=== PATIENT | male | born 1960 | race Caucasian/White ===

== ENCOUNTER 2020-08-05 00:14 | Emergency (ER) | payer BC ==
--- OUTSIDE RECORDS SUMMARY | 2020-08-05 00:22 | XMS ---
:1960 Author Organization [facility] Care Team Providers Name Role Phone Jean Pierre Thacker Unavailable Unavailable Farzad Benitez MD Unavailable Unavailable Reyna Ortega Unavailable Unavailable Narda Unavailable Unavailable Nasir, Mack Unavailable Unavailable Yamini Sharp Unavailable Unavailable Pete, Jose Unavailable Unavailable Nils Unavailable Unavailable Re-disclosure Warning The records that you are about to access may contain information from federally- assisted alcohol or drug abuse programs. If such information is present, then the following federally mandated warning applies: This information has been disclosed to you from records protected by federal confidentiality rules (42 CFR part 2). The federal rules prohibit you from making any further disclosure of this information unless further disclosure is expressly permitted by the written consent of the person to whom it pertains or as otherwise permitted by 42 CFR part 2. A general authorization for the release of medical or other information is NOT sufficient for this purpose. The Federal rules restrict any use of the information to criminally investigate or prosecute any alcohol or drug abuse patient.The records that you are about to access may contain highly sensitive health information, the redisclosure of which is protected by Article 27-F of the [facility] Public Health law. If you continue you may haveaccess to information: Regarding HIV / AIDS; Provided by facilities licensed or operated by the [facility] Office of Mental Health; or Provided by the [facility] Office for People With Developmental Disabilities. If such information is present, then the following [facility] mandated warning applies: This information has been disclosed to you from confidential records which are protected by state law. State law prohibits you from making any further disclosure of this information without the specific written consent of the person to whom it pertains, or as otherwise permitted by law. Any unauthorized further disclosure in violation of state law may result in a fine or retirement sentence or both. A general authorization for the release of medical or other information is NOT sufficient authorization for further disclosure. Advance Directives Directive Description Environmental Auditor Vaccine Customer Representative Status Observation Data S ource(s) Description Advance No [facility] Advance No [facility] Allergies and Adverse Reactions Type Description Substance Reaction Status Data Source(s ) 3 NO KNOWN ALLERGIES Clindamycin 150 MG NEXTGEN Oral Tablet ([facility] [Clintabs] Medical [facility] Medical [facility]) Drug allergy No Known Allergies No Known Allergies [facility] Encounters Encounter Providers Location Date Indications Data Source(s ) Outpatient Attender: Alvin 07/18/2020 NEXTGEN Lial 03:42:00 PM ([facility] ED Medical [facility] Medical [facility]) Outpatient Attender: David 07/06/2020 NEXTGEN Pete 06:39:00 AM ([facility] EDT Medical [facility] Medical [facility]) Outpatient Attender: Ken 07/03/2020 NEXTGEN Nasir 08:46:00 AM ([facility] Medical [facility] Medical [facility]) Outpatient Attender: David 06/29/2020 NEXTGEN Pete 09:11:00 AM ([facility] EDT Medical [facility] Medical [facility]) Outpatient Attender: Ken 06/27/2020 NEXTGEN NasirReferrlu 11:15:00 AM (Carem ount : Ken Best [facility] Medical [facility] Medical [facility]) Outpatient Attender: David 06/27/2020 NEXTGEN Pete 06:51:00 AM ([facility] ED Medical [facility] Medical [facility]) Outpatient Attender: Stephanie 06/14/2020 NEXTGEN Delia 01:00:00 PM ([facility] ReneReferrer: EDT Medical - M t [facility] ) Outpatient Attender: Julio 06/13/2020 NEXTGEN LissReferrer: 06:00:00 PM ([facility] David Freeman EDT Medical [facility]) Outpatient Attender: Ken 05/31/2020 MARIANELA Best 09:53:00 AM ([facility] EDT Medical [facility]) Outpatient Attender: David 05/31/2020 MARIANELA Freeman 09:20:00 AM ([facility] EDT Medical [facility]) Outpatient Attender: David 05/23/2020 MARIANELA FreemanReferrer: 02:45:00 PM ([facility] David Freeman EDT Medical [facility]) Outpatient Attender: David 05/17/2020 MARIANELA FreemanReferrer: 03:00:00 PM ([facility] David Freeman EDT Medical [facility]) Outpatient Attender: Daivd 05/14/2020 MARIANELA Freeman 11:18:00 AM ([facility] EDT Medical [facility]) Outpatient Attender: David 05/12/2020 MARIANELA Freeman 09:25:00 AM ([facility] EDT Medical [facility]) Outpatient Attender: David 05/02/2020 MARIANELA FreemanReferrer: 02:45:00 PM ([facility] David Freeman EDT Medical [facility]) Outpatient Attender: David 04/22/2020 MARIANELA Freeman 11:15:00 AM ([facility] EDT Medical [facility]) Outpatient Attender: David 04/21/2020 MARIANELA Freeman 09:11:00 AM ([facility] EDT Medical [facility]) Outpatient Attender: David 04/15/2020 MARIANELA FreemanReferrer: 02:45:00 PM ([facility] David Freeman EDT Medical [facility]) Outpatient Attender: Alvin 04/10/2020 MARIANELA SharpReferrer: 04:00:00 PM (Nikole Sharp ED Medical [facility]) Outpatient Attender: David 04/05/2020 MARIANELA FreemanReferrer: 11:15:00 AM ([facility] David Freeman EDT Medical [facility]) Outpatient Attender: Alvin 04/04/2020 MARIANELA Sharp 01:44:00 PM ([facility] EDT Medical [facility]) Outpatient Attender: Ken 04/04/2020 MARIANELA Best 08:57:00 AM ([facility] EDT Medical [facility]) Outpatient Attender: Ken 04/02/2020 MARIANELA Best 09:02:00 AM ([facility] EDT Medical [facility]) Outpatient Attender: Ken 03/28/2020 MARIANELA BestReferrer 04:30:00 PM (Carem ount : Ken Best ED Medical [facility]) Outpatient Attender: Ken 03/28/2020 MARIANELA Best 12:21:00 PM ([facility] EDT Medical [facility]) Outpatient Attender: Ken 03/22/2020 MARIANELA Best 04:31:00 PM ([facility] EDT Medical [facility]) Outpatient Attender: Ken 02/27/2020 MARIANELA Best 11:48:00 AM ([facility] EDT Medical [facility]) Outpatient Attender: Alvin 02/19/2020 MARIANELA Sharp 12:17:00 PM ([facility] EDT Medical [facility]) Outpatient Attender: Alvin 02/15/2020 MARIANELA Sharp 03:57:00 PM ([facility] EDT Medical [facility]) Outpatient Attender: Alvin 01/10/2020 MARIANELA SharpReferrer: 04:30:00 PM (Carem [facility]unt Alvin Sharp EST Medical [facility]) Outpatient Attender: Ken 01/03/2020 MARIANELA Best 10:48:00 AM ([facility] EST Medical [facility]) Outpatient Attender: Ken 12/28/2019 MARIANELA BestReferrer 03:30:00 PM (Carem [facility]unt : Ken Best EST Medical [facility]) Outpatient Attender: Reyna 12/27/2019 MARIANELA Germainimakimberley 08:55:00 AM [facility]) Outpatient Attender: Reyna 12/23/2019 MARIANELA Germainhuong 12:00:00 AM ([facility] EST Medical [facility]) Outpatient Attender: Reyna 12/15/2019 NEXTGEN Shannon 04:06:00 PM ([facility] EST Medical [facility]) Outpatient Attender: Alvin 12/14/2019 MARIANELA SharpReferrer: 04:45:00 PM ([facility] Alvin [facility]) Outpatient Attender: Reyna 11/23/2019 NEXTGEN Shannon 03:00:00 PM ([facility] EST Medical [facility]) Outpatient Attender: Reyna [facility]11/2019 [facility] 10:17:00 AM ([facility] EST Medical [facility]) Outpatient Attender: Jean Pierre 10/10/2019 [facility] KedarReferrer: 04:00:00 PM ([facility]) Outpatient Attender: Ken 10/10/2019 MARIANELA Best 09:41:00 AM ([facility] EST Medical [facility]) Outpatient Attender: Reyna 10/09/2019 [facility] 10:22:00 AM ([facility] EST Medical [facility]) Outpatient Attender: Reyna 09/21/2019 [facility] ShannonReferrer: 04:40:00 PM ([facility]formerly [facility]) Outpatient Attender: Ken 08/01/2019 MARIANELA Best 08:22:00 AM ([facility] EDT [facility]) Outpatient Attender: Farzad 07/27/2019 SCREENINGGONZÁLEZ MD 07:45:00 AM HX OF C/R POLYPS [facility] ED[facility] - 07/27/2019 06:28:00 AM EDT SCREENING, PERSONAL HX OF C/R POLYPS Patient discharged. Outpatient Attender: David 07/27/2019 12:00:00 JACINTAGEN (Leonidmosincere FreemanReferrer: Alvin AM EDT Sc dical [facility]) Outpatient Attender: Ken Best 07/26/2019 01:37:00 NEXTGEN ([facility] PM EDT Medical - [facility]) Outpatient Attender: Ken 07/20/2019 04:45:00 NEXTGEN ([facility] NasirReferrer: Ken PM EDT Medical - [facility]) Outpatient Attender: Alvin 07/20/2019 04:15:00 NEXTGEN ([facility] LilaReferrer: Alvin PM EDT M edical - [facility]) Outpatient Attender: Ken Best 04/27/2019 02:38:00 NEXTGEN ([facility] PM EDT Medical - [facility]) Outpatient Attender: Ken 04/19/2019 04:15:00 NEXTGEN ([facility] NasirReferrer: Ken PM EDT Medical - [facility]) Outpatient Attender: Ken Best 03/29/2019 08:18:00 NEXTGEN ([facility] AM EDT Medical - [facility]) Outpatient Attender: Ken 02/15/2019 04:45:00 NEXTGEN ([facility] NasirReferrer: Ken PM EDT Medical - [facility]) Outpatient Attender: Ken Best 02/06/2019 09:11:00 NEXTGEN ([facility] AM EDT Medical - [facility]) Outpatient Attender: Ken Best 01/02/2019 11:22:00 NEXTGEN ([facility] AM EST Medical - [facility]) Medications Medication Brand Start Product Dose Route Administrative Pharmacy [facility] Indications Reaction Description Data Name Date Form Instructions Instructions Source(s) Cholecalcif VITAMI RP NEXTGE N jaycee 2000 N D3 ([facility] UNT Oral Medical - Capsule 50 [place] mcg (2,000 Medical unit) 50 Group PC) mcg (2,000 unit) This may be an active medication. No end date is available. Start date above may not reflect actual date the medication was s tarted. 7.5 mg 7.5 mg 07/18/2020 12:00:00 one table po RP NEXTGEN ([facility] AM EDT bid Medical - [facility]) This may be an active medication. No end date is available. 24 HR METOPROLOL 06/29/2020 take 1 RP NEXTGEN metoprolol SUCCINATE 12:00:00 AM tablet by ([facility] succinate 100 EDT oral route Medical - Mt MG Extended every day [facility] Medical Release Oral Group P C) Tablet 100 mg 100 mg This may be an active medication. No end date is available. Amlodipine 10 AMLODIPINE 06/14/2020 take 1 RP NEXTGEN MG Oral Tablet BESYLATE 12:00:00 AM tablet by ([facility] 10 mg 10 mg EDT oral route Me dical - Mt every day [facility] ical [facility]) This may be an active medication. No end date is available. Amlodipine 5 MG AMLODIPINE 05/17/2020 take 1 RP NEXTGEN Oral Tablet 5 BESYLATE 12:00:00 AM tablet by ([facility] mg 5 mg EDT oral route Medica l - Mt every day [facility]) This may be an active medication. No end date is available. 24 HR METOPROLOL 05/02/2020 take 1 RP NEXTGEN metoprolol SUCCINATE 12:00:00 AM tablet by ([facility] succinate 100 EDT oral route Medical - Mt MG Extended every day [facility] Medical Release Oral Group P C) Tablet 100 mg 100 mg This may be an active medication. No end date is available. 24 HR METOPROLOL 04/15/2020 take 1 RP NEXTGEN metoprolol SUCCINATE 12:00:00 AM tablet by ([facility] succinate 50 MG EDT oral route Medical - [facility] Extended every day [facility]) Tablet 50 mg 50 mg This may be an active medication. No end date is available. 7.5 mg 7.5 mg 04/10/2020 12:00:00 one table po RP NEXTGEN ([facility] AM EDT bid Medical - [facility]) This may be an active medication. No end date is available. Losartan LOSARTAN 04/05/2020 take 1 RP NEXTGEN Potassium 100 POTASSIUM 12:00:00 AM EDT tablet by ([facility] MG Oral Tablet oral route Medical - Mt 100 mg 100 mg every day [facility]) This may be an active medication. No end date is available. empagliflozin 10 JARDIANCE 04/02/2020 TAKE 1 RP NEXTGEN MG Oral Tablet 12:00:00 AM EDT TABLET BY ([facility] [Jardiance] 10 mg MOUTH EVERY Medical - Mt 10 mg DAY IN THE [facility] dical MORNING Group PC) This may be an active medication. No end date is available. atorvastatin 10 ATORVASTATIN 03/22/2020 take 1 RP NEXTGEN MG Oral Tablet CALCIUM 12:00:00 AM tablet by ([facility] 10 mg 10 mg EDT oral Medical - Mt route [facility] Medical every day Group PC) This may be an active medication. No end date is available. 24 HR Metformin METFORMIN HCL 02/27/2020 TAKE 2 RP NEXTGEN hydrochloride 750 ER 12:00:00 AM TABLET BY ([facility] MG Extended EDT ORAL ROUTE Me dical - Mt Release Oral EVERY DAY [facility] Tablet 750 mg 750 WITH THE Group PC) mg EVENING MEAL with the evening meal This may be an active medication. No end date is available. glimepiride 2 MG GLIMEPIRIDE 02/27/2020 TAKE 1 RP NEXTGEN Oral Tablet 2 mg 12:00:00 AM EDT TABLET BY ([facility] 2 mg ORAL ROUTE Medical - Mt EVERY DAY [facility]) This may be an active medication. No end date is available. 3 mg-35 mg-2 02/19/2020 take 1 tablet RP NEXTGEN mg-90.314 mg 3 12:00:00 AM EDT by oral route ([facility] mg-35 mg-2 2 times every Medical - Mt mg-90.314 mg day [facility]) This may be an active medication. No end date is available. 3 mg-35 mg-2 12/14/2019 take 1 tablet RP NEXTGEN mg-90.314 mg 3 12:00:00 AM EST by oral route ([facility] mg-35 mg-2 2 times every Medical - Mt mg-90.314 mg day [facility]) This may be an active medication. No end date is available. atorvastatin 10 ATORVASTATIN 10/10/2019 TAKE 1 RP NEXTGEN MG Oral Tablet CALCIUM 12:00:00 AM TABLET BY ([facility] 10 mg 10 mg EST ORAL Medical - Mt ROUTE [facility] Medical EVERY DAY Group PC) This may be an active medication. No end date is available. glimepiride 2 MG GLIMEPIRIDE 08/01/2019 TAKE 1 RP NEXTGEN Oral Tablet 2 mg 12:00:00 AM EDT TABLET BY ([facility] 2 mg ORAL ROUTE Medical - Mt EVERY DAY [employer] [facility]) This may be an active medication. No end date is available. empagliflozin 10 JARDIANCE 03/29/2019 TAKE 1 RP NEXTGEN MG Oral Tablet 12:00:00 AM EDT TABLET BY ([facility] [Jardiance] 10 mg ORAL ROUTE Medical - Mt 10 mg EVERY DAY [place] [facility] IN THE Group PC) MORNING This may be an active medication. No end date is available. 24 HR Metformin METFORMIN HCL 02/06/2019 TAKE 2 RP NEXTGEN hydrochloride 750 ER 12:00:00 AM TABLET BY ([facility] MG Extended EDT ORAL ROUTE Me dical - Mt Release Oral EVERY DAY [facility] Medical Tablet 750 mg 750 WITH THE Group PC) mg EVENING MEAL This may be an active medication. No end date is available. 24 HR Metformin METFORMIN HCL 08/04/2017 TAKE 1 RP NEXTGEN hydrochloride 500 ER 12:00:00 AM TABLET BY ([facility] MG Extended EDT ORAL ROUTE Me dical - Mt Release Oral EVERY DAY [facility] Medical Tablet 500 mg 500 Gr oup PC) mg This may be an active medication. No end date is available. Ketoconazole 20 KETOCONAZOLE 05/21/2016 apply by BROOK NEXTGEN MG/ML Medicated 12:00:00 AM topical ([facility] Shampoo 2 % 2 % EDT route every Medical - Mt day to the [facility] affected Group PC) area(s), lather, leave in place for 5 minutes, and then rinse off with water This may be an active medication. No end date is available. selenium SELENIUM 05/21/2016 apply by BROOK BEAR sulfide 25 SULFIDE 12:00:00 AM topical route ([facility] MG/ML EDT every week to Medic al - Mt Medicated wet scalp work [employer] [facility] Shampoo 2.5 % into a full Group PC) 2.5 % lather, leave on scalp for 2-3 minutes, rinse thoroughly, and then pat dry This may be an active medication. No end date is available. No Meds completed [facility] 24 HR Metformin Metformin Hcl TABLET 24 500 mg ORAL complete d White hydrochloride [address] MG Extended SUSTAINED Hos pital Release Oral RELEASE Tablet [Glucophage] Metformin Hcl glimepiride 1 MG Glimepiride TABLET 1 mg ORAL completed White Oral Tablet [place] Glimepiride [facility] empagliflozin 10 Empagliflozin TABLET 10 completed White MG Oral Tablet [facility] [Jardiance] [facility] Empagliflozin Cholecalciferol Cholecalciferol CAPSULE 2000 ORAL completed White 2000 UNT Oral (Vitamin D3) [place] Capsule [facility] Cholecalciferol (Vitamin D3) atorvastatin 10 Atorvastatin TABLET 10 mg ORAL completed White MG Oral Tablet Calcium Pl ains [Lipitor] Hospital Atorvastatin Calcium Insurance Providers Payer name Policy type Policy ID Covered Covered democrat's Policy P florencio / Coverage democrat ID relationship to Downs Inf ormation type downs BC PPO [id number] SP [id number] NYEM [id number] [place] [employer] [place] BL[employer] [place]OSS [id number] PT [id number] PPO BLUE CROSS [id number] PT [id number] IND Problems, Conditions, and Diagnoses Code Display Name Description Problem Type Effective Data Dates Source(s) E11.42 Type 2 diabetes Diabetic Diagnosis 06/27/2020 NEXTGEN mellitus with polyneuropathy 11:15:00 AM ([facility] diabetic associated with EDT Medical [place] polyneuropathy type 2 diabetes [facility] Medical mellitus Group ) E78.5 Hyperlipidemia, Hyperlipidemia, Diagnosis 06/14/2020 NEXT GEN unspecified unspecified 01:00:00 PM ([facility] EDT Medical - [facility] ) E11.69 Type 2 diabetes Hyperlipidemia Diagnosis 06/14/2020 NEXTG EN mellitus with other associated with 01:00:00 PM ([facility] specified type 2 diabetes EDT Medical - [place] complication mellitus [facility] ) E11.9 Type 2 diabetes Type 2 diabetes Diagnosis 06/14/2020 NEXT GEN mellitus without mellitus without 01:00:00 PM ( [facility] complications complication, EDT Medical - [place] without long-term [facility] edical current use of Group ) insulin I10 Essential (primary) Essential Diagnosis 06/14/2020 NEXTG EN hypertension hypertension 01:00:00 PM ([facility] EDT Medical - [facility] ) D63.1 Anemia in chronic Anemia in chronic Diagnosis 06/13/2020 NEXTGEN kidney disease kidney disease 06:00:00 PM ([facility]) E83.52 Hypercalcemia Hypercalcemia Diagnosis 06/13/2020 NEXTGEN 06:00:00 PM ([facility]) N18.2 Chronic kidney CKD (chronic kidney Diagnosis 06/13/2020 N EXTGEN disease, stage 2 disease) stage 2, 06:00:00 PM ([facility] (mild) GFR 60-89 ml/min EDT [facility]) E11.65 Type 2 diabetes Type 2 diabetes Diagnosis 05/23/2020 NEXT GEN mellitus with mellitus with 02:45:00 PM ([facility] hyperglycemia hyperglycemia [facility]) R79.9 Abnormal finding of Abnormal blood Diagnosis 04/22/2020 N EXTGEN blood chemistry, chemistry 11:15:00 AM ([facility] unspecified [facility]) E78.2 Mixed Mixed Diagnosis 04/05/2020 NEXTGEN hyperlipidemia hyperlipidemia 11:15:00 AM ([facility]) R20.0 Anesthesia of skin Numbness and Diagnosis 09/21/2019 NEXT GEN tingling 04:40:00 PM ([facility] EST [facility]) E11.40 Type 2 diabetes Type 2 diabetes Diagnosis 07/20/2019 NEXT GEN mellitus with mellitus with 04:15:00 PM ([facility] diabetic diabetic neuropathy EDT Medic [facility] neuropathy, [facility] unspecified Group PC) Surgeries/Procedures Procedure Description Date Indications Data Source(s) GLUCOSE BLOOD TEST GLUCOSE BLOOD TEST 06/27/2020 NEX TGEN ([facility] 12:00:00 AM [facility] EDT Medical Group P C) OFFICE/OUTPATIENT OFFICE/OUTPATIENT 06/27/2020 NEXTG EN ([facility] VISIT EST VISIT EST 12:00:00 AM [facility] EDT Medical Group P C) OFFICE CONSULTATION OFFICE CONSULTATION 06/13/2020 N EXTGEN ([facility] 12:00:00 AM [facility] EDT Medical Group P C) OFFICE/OUTPATIENT OFFICE/OUTPATIENT 03/28/2020 NEXTG EN ([facility] VISIT EST VISIT EST 12:00:00 AM [facility] Group P C) NRV CNDJ TEST 09-19 NRV CNDJ TEST 09-1910/10/2019 N EXTGEN ([facility] STUDIES STUDIES 12:00:00 AM [facility] Group P C) MUSC TEST DONE W/N MUSC TEST DONE W/N 10/10/2019 NEX TGEN ([facility] TEST COMP TEST COMP 12:00:00 AM [facility] Group P C) GLYCOSYLATED GLYCOSYLATED 07/20/2019 NEXTGEN ([facility] HEMOGLOBIN TEST HEMOGLOBIN TEST 12:00:00 AM [facility] P C) UR ALBUMIN UR ALBUMIN 07/20/2019 NEXTGEN ([facility] QUANTITATIVE QUANTITATIVE 12:00:00 AM [facility] P C) ROUTINE VENIPUNCTURE ROUTINE VENIPUNCTURE 07/20/2019 NEXTGEN ([facility] 12:00:00 AM [facility] P C) Results ID Date Data Source [id number] 07/27/2019 07:17:00 AM [facility] Loom Cleaner:JADIEL ADHIKARI Name Value Range Interpretation Description Data Sup porting Code Source(s) Document(s ) Glucose 149 mg/dL [place] [Mass/volume] [facility] in Capillary blood by Glucometer Procedure Social History Code Duration Value Status Description Data Source(s ) Smoking Unknown if ever completed Unknown if ever [facility] smoked smoked Hospital Vital Signs ID Date Data Source UNK Name Value Range Interpretation Code Description Data Source(s) Diastolic blood 81 mm[Hg] 81 mm[Hg] [facility] Systolic blood 148 mm[Hg] 148 mm[Hg] [facility] Respiratory rate 18 /min 18 /min [facility] Heart rate 81 /min 81 /min [facility] Body temperature 36.30024 Janel 36.93400 Janel [facility] Body temperature 97.8 [degF] 97.8 [degF] [facility] Body mass index 24.4 kg/m2 24.4 kg/m2 [facility] ins (BMI) [Ratio] Hospital Body weight 190 [lb_av] 190 [lb_av] [facility]
--- NOTE | 2020-08-05 00:30 | PDOC ---
Attending Attestation - Resident Resident Name: Iris Du - ED Attending Attestation I have performed the following: I have examined & evaluated the patient, The case was reviewed & discussed with the resident, I agree w/resident's findings & plan - HPI HPI: 08/05/20 00:59 Pt comes with vasovagal syncope today after learning that his mom is ill. 08/05/20 07:35 Pt is a 60 yo M, with PMH of HTN, HLD, and NIDDM, who is presenting as a rapid response from the ICU floor. Pt was visiting his mother, when he felt "light- headed and not like myself". Per staff in the ICU and pts , the pt became diaphoretic, and fell forward into the arms of his , but did not fall to the ground or have LOC. Pt states he feels better on arrival to the ER. Pt also recently endorses yellowish discharge from both eyes which "stick together when he wakes in the morning". Pt denies any fevers/chills, headache, syncope, chest pain, palpitations, SOB, nausea/vomiting, abdominal pain, urinary symptoms, diarrhea/constipation, or leg swelling. - Physicial Exam PE: 08/05/20 07:35 Agree with resident exam - Medical Decision Making 08/05/20 00:59 EKG NSR FS normal exam normal pt feeling better in the ER 08/05/20 07:35 Pt is stable to go home. Discharge - Discharge Information Problems reviewed: Yes Clinical Impression/Diagnosis: Pre-syncope Condition: Improved Disposition: HOME - Follow up/Referral Referrals: David Freeman MD [Primary Care Provider] - - Patient Discharge Instructions Patient Printed Discharge Instructions: DI for Syncope in Adults (Fainting), DI for Conjunctivitis Additional Instructions: You were seen in the ER today for an episode of near-fainting. The results of your EKG and sugar today were normal. Please follow-up with your primary care doctor within 1-2 days to discuss your visit and make sure your symptoms have improved. Please return to the ER if you have any further episodes of passing out or loss of consciousness, development of fevers or chills, inability to tolerate food or fluids, or any other concerns. I have also provided eye drops for conjunctivitis. Please take these as pre scribed (1 drop in each eye, every 4 waking hours, for 7 days). - Post Discharge Activity
[2020-08-05] MEDS ORDERED: POLYMYXIN B SULFATE/TMP 10 ML OPHTHALMIC SOLUTION OU STA (00:41)
[2020-08-05 00:43] VITALS: BP 147/87; PULSE 75; TEMP 97.7; BMI 23.7
--- NOTE | 2020-08-05 00:56 | PDOC ---
History of Present Illness - General Chief Complaint: Syncope/Near Syncope Stated Complaint: SYNCOPE Time Seen by Provider: 08/05/20 00:30 History Source: Patient Exam Limitations: No Limitations - History of Present Illness Initial Comments: Pt is a 60 yo M, with PMH of HTN, HLD, and NIDDM, who is presenting as a rapid response from the ICU floor. Pt was visiting his mother, when he felt "light- headed and not like myself". Per staff in the ICU and pts , the pt became diaphoretic, and fell forward into the arms of his , but did not fall to the ground or have LOC. Pt states he feels better on arrival to the ER. Pt also recently endorses yellowish discharge from both eyes which "stick together when he wakes in the morning". Pt denies any fevers/chills, headache, syncope, chest pain, palpitations, SOB, nausea/vomiting, abdominal pain, urinary symptoms, diarrhea/constipation, or leg swelling. Allergies: NKDA PCP and endocrine physicians are out of network. Social: Pt denies any cigarette, alcohol, or drug use. Pt denies any recent travel or sick contacts. Surgical: no relevant history. Family: no relevant history. 08/05/20 06:38 08/05/20 06:47 Past History - Travel History Traveled outside of the country in the last 30 days: No Close contact w/someone who was outside of country & ill: No - Medical History Allergies/Adverse Reactions: Allergies Allergy/AdvReac Type Severity Reaction Status Date / Time No Known Allergies Allergy Verified 08/05/20 00:19 - Psycho-Social/Smoking History Smoking History: Never smoked Information on smoking cessation initiated: No - Substance Abuse Hx (Audit-C & DAST Scrn) How often the patient has a drink containing alcohol: Monthly or less Number of drinks the patient has on a typical day: 1 or 2 How often the patient has six or more drinks on one occasion: Never Score: In Men: 4 or > Positive; In Women: 3 or > Positive: 1 Screen Result (Pos requires Nsg. Audit-10AR): Negative In the last yr the pt used illegal drug/Rx for NonMed reason: No Score: Yes response is considered Positive: 0 Screen Result (Positive result requires Nsg. DAST-10): Negative Review of Systems - Review of Systems Able to Perform ROS?: Yes Is the patient limited Brazilian proficient: No Constitutional: Yes: Weight Stable. No: Chills, Diaphoresis, Fever, Loss of Appetite, Malaise, Weakness HEENTM: Yes: See HPI, Tearing. No: Recent change in vision, Nose Congestion, Throat Pain, Throat Swelling, Difficulty Swallowing Respiratory: No: Cough, Orthopnea, Shortness of Breath Cardiac (ROS): Yes: See HPI, Lightheadedness. No: Chest Pain, Edema, Irregular Heart Rate, Palpitations, Syncope, Chest Tightness ABD/GI: No: Constipated, Diarrhea, Nausea, Poor Appetite, Poor Fluid Intake, Vomiting : No: Burning, Frequency, Urgency Musculoskeletal: No: Back Pain, Neck Pain Integumentary: No: Rash Neurological: No: Headache, Numbness, Weakness, Unsteady Gait, Dizziness Psychiatric: Yes: Stressors (home problems, mother sick in ICU). No: Sleep Pattern Change, Change in Appetite Endocrine: No: Increased Urine, Change in Weight Hematologic/Lymphatic: No: Anemia, Blood Clots, Easy Bleeding, Easy Bruising All Other Systems: Reviewed and Negative *Physical Exam - Vital Signs Last Vital Signs Temp Pulse Resp BP Pulse Ox 97.7 F 75 18 147/87 98 08/05/20 00:08/05/20 00:17 08/05/20 00:08/05/20 00:08/05/20 00:17 - Physical Exam Vitals stable, pt afebrile. Pt in NAD, able to transfer to the stretcher without assistance. Normal body habitus. Pt alert and oriented x3. precision assembly inspector generally intact, muscular strength and sensation intact. No midline spinal tenderness, step-offs, or crepitus. Head normocephalic, atraumatic. Eyes PERRLA, EOMI. +b/l mild conjunctival injection with yellowish drainage. Oropharynx without erythema or exudates, no LAD b/l. No nasal congestion. Hearing intact. Clear heart sounds, S1/S2, no JVD, b/l pedal edema, or heart murmur. Clear lung sounds, no respiratory distress, wheezes, crackles, or accessory muscle use. No abdominal or CVA tenderness to palpation, no rebound, no guarding. Abdomen soft, non-distended, and with normoactive bowel sounds. Skin without jaundice or rash. 08/05/20 06:46 08/05/20 06:48 ED Treatment Course - ADDITIONAL ORDERS Additional order review: Laboratory Results 08/05/20 00:43 POC Glucometer 150 08/05/20 00:43 POC Glucometer 150 Medical Decision Making - Medical Decision Making Pt was seen at bedside, also will be seen by attending Dr. King. Pt presenting via rapid response for near syncopal episode which was precipitated by diaphoresis and light-headedness. Will obtain EKG and BGM and observe for symptomatic improvement. ECG: NSR, intervals WNL (HR 77, WV 176, QRS 88, QTc 443). Isolated TWI in III, with no significant ST segment changes. 08/05/20 06:50 BGM 100s. Pt ambulatory without assistance, symptomatically improved. Pt safe for d/c to home with PCP f/u. at bedside to drive pt home. Strict return precautions provided with pt understanding. Discharge - Discharge Information Problems reviewed: Yes Clinical Impression/Diagnosis: Pre-syncope Condition: Improved Disposition: HOME - Admission No - Follow up/Referral Referrals: David Freeman MD [Primary Care Provider] - - Patient Discharge Instructions Patient Printed Discharge Instructions: DI for Syncope in Adults (Fainting), DI for Conjunctivitis Additional Instructions: You were seen in the ER today for an episode of near-fainting. The results of your EKG and sugar today were normal. Please follow-up with your primary care doctor within 1-2 days to discuss your visit and make sure your symptoms have improved. Please return to the ER if you have any further episodes of passing out or loss of consciousness, development of fevers or chills, inability to tolerate food or fluids, or any other concerns. I have also provided eye drops for conjunctivitis. Please take these as prescribed (1 drop in each eye, every 4 waking hours, for 7 days). - Post Discharge Activity
[2020-08-05] MEDS ORDERED: POLYMYXIN B SULFATE/TMP 10 ML OPHTHALMIC SOLUTION OU SCH (06:00)
--- NOTE | 2020-08-05 14:02 | EKG ---
Test Reason : Blood Pressure : / mmHG Vent. Rate : 077 BPM Atrial Rate : 077 BPM P-R Int : 176 ms QRS Dur : 088 ms QT Int : 392 ms P-R-T Axes : 026 -12 005 degrees QTc Int : 443 ms NORMAL SINUS RHYTHM NORMAL ECG NO PREVIOUS ECGS AVAILABLE Confirmed by LAI LEE MD ([id number]) on 08/05/2020 2:01:52 PM Referred By: Confirmed By:LAI LEE MD
== END 2020-08-05 01:22 | disposition home or self-care (01) ==
LOC: JER 00:14
DX: R55 Syncope and collapse (principal)
CPT/HCPCS: 82962; 93005; 93010; 99284-25

== ENCOUNTER 2023-01-03 17:39 | Inpatient (IN) | payer BC, OTHER ==
[2023-01-03 18:16] VITALS: BMI 22.9
[2023-01-03] MEDS ORDERED: BISMUTH SUBSALICYLATE 524 MG/30 ML PO PRN (21:03)
[2023-01-03] MEDS ORDERED: ACETAMINOPHEN 325 MG TABLET (FP) PO PRN ×2 (21:03)
[2023-01-03] MEDS ORDERED: ONDANSETRON *ODT* 4 MG TABLET SL PRN (21:03)
[2023-01-03] MEDS ORDERED: DICYCLOMINE HCL 10 MG CAPSULE PO PRN (21:03)
[2023-01-03] MEDS ORDERED: LOPERAMIDE HCL 2 MG CAPSULE PO PRN (21:03)
[2023-01-03] MEDS ORDERED: BENZOCAINE/MENTHOL (CHLORASEPTIC ) LOZENGE MM PRN (21:03)
[2023-01-03] MEDS ORDERED: MAGNESIUM HYDROX 2400MG/30ML ORAL SUSPENSION 30 ML CUP PO PRN (21:03)
[2023-01-03] MEDS ORDERED: NALOXONE HCL (KLOXXADO) 8 MG SPRAY NS PRN (21:03)
[2023-01-03] MEDS ORDERED: POLYETHYLENE GLYCOL (HEALTHYLAX) 3350 17 GM PACKET PO PRN (21:03)
[2023-01-03] MEDS ORDERED: IBUPROFEN 400 MG TABLET (FP) PO PRN (21:03)
[2023-01-03] MEDS ORDERED: METHOCARBAMOL 500 MG TABLET PO PRN (21:03)
[2023-01-03] MEDS ORDERED: MAG HYDROX/AL HYDROX/SIMETH 30 ML UNIT-DOSE CUP PO PRN (21:03)
[2023-01-03] MEDS ORDERED: IBUPROFEN 600 MG TABLET (FP) PO PRN (21:03)
[2023-01-03] MEDS ORDERED: THIAMINE HCL 100 MG TABLET (FP) PO SCH (22:00)
[2023-01-03] MEDS ORDERED: MELATONIN 5 MG TABLETS PO SCH (22:00)
[2023-01-03] MEDS ORDERED: cloNIDine HCL 0.1 MG TABLET PO ONE (22:31)
[2023-01-03] MEDS ORDERED: TRIMETHOBENZAMIDE HCL 200MG/2ML INJ IM ONE (23:29)
[2023-01-04] MEDS ORDERED: GABAPENTIN 300 MG CAPSULE PO ONE (00:21)
[2023-01-04] MEDS ORDERED: metFORMIN HCL 500 MG TABLET (FP) PO SCH ×2 (07:00→16:30)
[2023-01-04] MEDS ORDERED: INSULIN SLIDING SCALE (NOVOLOG) 1 VIAL SQ SCH (07:00)
[2023-01-04] MEDS ORDERED: GLIMEPIRIDE 2 MG TABLET PO SCH (07:00)
[2023-01-04] MEDS ORDERED: PRENATAL VITAMINS W/ FOLIC ACID TABLET (FP) PO SCH (10:00)
[2023-01-04] MEDS ORDERED: CHOLECALCIFEROL (VIT D3) 1,000 UNIT (25 MCG) TABLET PO SCH (10:00)
[2023-01-04] MEDS ORDERED: CYANOCOBALAMIN 1,000 MCG TABLET (FP) PO SCH (10:00)
[2023-01-04] MEDS ORDERED: FOLIC ACID 1 MG TABLET (FP) PO SCH (10:00)
[2023-01-04] MEDS ORDERED: PATIENT'S OWN MEDICATION (NON-FORMULARY) (Empagliflozin 25 MG Tablet) PO SCH (10:00)
[2023-01-04] MEDS ORDERED: FERROUS SO4 325 MG TABLET (FP) PO SCH (10:00)
[2023-01-04] MEDS ORDERED: PANTOPRAZOLE 40 MG TABLET PO SCH (10:00)
[2023-01-04] MEDS ORDERED: amLODIPine BESYLATE 5 MG TABLET (FP) PO SCH (10:00)
[2023-01-04 12:18] LABS: HEMATOCRIT 32.6 % (35.4-49); HEMOGLOBIN 11.2 GM/dL (11.7-16.9); MCH 31.5 pg (25.7-33.7); MCHC 34.5 g/dl (32.0-35.9); MEAN CELL VOLUME 91.4 fl (80-96); MEAN PLT VOLUME 7.4 fl (7.5-11.1); PLATELET COUNT 230 10^3/uL (134-434); RBC 3.57 M/mm3 (4.00-5.60); RDW 13.5 % (11.9-15.9); WHITE BLOOD COUNT 5.8 K/mm3 (4.0-10.0)
[2023-01-04 12:31] LABS: BLOOD UREA NITROGEN 50.5 mg/dL (7-18)
[2023-01-04 12:37] LABS: BILIRUBIN,TOTAL 1.1 mg/dL (0.2-1)
[2023-01-04 14:01] VITALS: BP 134/66; PULSE 96; RESP 17; TEMP 98.9
[2023-01-04] MEDS ORDERED: GABAPENTIN 300 MG CAPSULE PO SCH (22:00)
[2023-01-04] MEDS ORDERED: ATORVASTATIN CA 10 MG TABLET (FP) PO SCH (22:00)
[2023-01-04] MEDS ORDERED: THIAMINE HCL 100 MG TABLET (FP) PO SCH (22:00)
== END 2023-01-04 15:38 | disposition home or self-care (01) | DRG 897 ==
LOC: YASAS 17:39 → Y3N 21:30
PROVIDERS: ADMIT Allergy & Immunology; ATTEND Surgery
PROC: HZ2ZZZZ Detoxification Services for Substance Abuse Treatment (ICD-10-PCS; principal; 2023-01-03)
DX: F10.20 Alcohol dependence, uncomplicated (principal); I10 Essential (primary) hypertension; E78.5 Hyperlipidemia, unspecified; E55.9 Vitamin D deficiency, unspecified; E11.9 Type 2 diabetes mellitus without complications; Z79.84 Long term (current) use of oral hypoglycemic drugs; Z87.891 Personal history of nicotine dependence
CPT/HCPCS: 36415; 80053; 82962; 85027; 86780; 87811; 93005; 93010; C9803-CS; U0003; U0005